=== PATIENT | male | born 1980 | race Caucasian/White ===

== ENCOUNTER 2017-01-23 17:06 | Emergency (ER) | payer OTHER ==
[~2017-01-23] VITALS: Ht 180.3 cm; Wt 99.0 kg
[~2017-01-23 17:06] MED LIST: PSYCH MEDS
[2017-01-23 17:39] VITALS: Ht 180.3 cm; Wt 99.0 kg
[2017-01-23] MEDS ORDERED: TRIMETHOPRIM/SULFAMETHOX (DS) TAB PO ONE (19:30)
[2017-01-23] MEDS ORDERED: CEPHALEXIN 500 MG CAP PO ONE (19:30)
[2017-01-23] MEDS ORDERED: LIDOCAINE 1% (MDV) 20 ML INJ SC ONE (19:30)
--- NOTE | 2017-01-23 19:47 | ERA ---
ER Documentation Chief Complaint Date/Time DATE: 01/23/17 TIME: 19:42 Chief Complaint Pt with Lower lip ulcer abd jaw pain X 1 week. HPI Patient is a 36-year-old male who presents with a one-week history of an abscess that started off as a pimple growing on the left lower lateral vermilion border. Patient describes dull pain to palpation along the left jaw and white drainage inside the mouth for the past 2-3 days. Patient denies any difficulty breathing, swelling in the mouth, fever, nausea, vomiting, diarrhea, body shakes, new rashes, changes in color of the skin. Has been taken Tylenol with minimal relief. Patient has never had an abscess before. ROS All systems reviewed and are negative except as per history of present illness. Medications Home Meds Active Scripts Ibuprofen* (Ibuprofen*) 600 Mg Tablet, 600 MG PO Q8 for 10 Days, TAB Prov:RAMON BRUNO PA-C 01/23/17 Reported Medications [Psych Meds] No Conflict Check 10/25/11 Allergies Allergies: Coded Allergies: No Known Allergy (Unverified , 11/29/11) PMhx/Soc History of Surgery: Yes (facial sx) Hx Psychiatric Problems: Yes (BIPOLAR PSYCH HISTORY) Hx Alcohol Use: Yes (DRINKING TONIGHT) Hx Substance Use: No Hx Tobacco Use: No Smoking Status: Current every day smoker Physical Exam Vitals Vital Signs Date Time Temp Pulse Resp B/P Pulse Ox O2 Delivery O2 Flow Rate FiO2 01/23/17 17:39 97.1 113 20 122/93 96 Physical Exam Const: [] Head: Atraumatic Eyes: Normal Conjunctiva ENT: Normal External Ears, Nose and Mouth. Neck: Full range of motion..~ No meningismus. Resp: Clear to auscultation bilaterally Cardio: Regular rate and rhythm, no murmurs Abd: Soft, non tender, non distended. Normal bowel sounds Skin: No petechiae or rashes Back: No midline or flank tenderness Ext: No cyanosis, or edema Neur: Awake and alert Psych: Normal Mood and Affect Results 24 hrs Current Medications Medications (Trade) Dose Ordered Sig/Venita Route PRN Reason Start Time Stop Time Status Last Admin Dose Admin Cephalexin (Keflex) 500 mg ONCE ONCE PO 01/23/17 19:30 01/23/17 19:31 DC 01/23/17 19:21 Trimethoprim/ Sulfamethoxazole (Bactrim (Ds)) 1 tab ONCE ONCE PO 01/23/17 19:30 01/23/17 19:31 DC 01/23/17 19:21 Lidocaine (Xylocaine 1% (Mdv) 20 ml) 20 ml ONCE ONCE SC 01/23/17 19:30 01/23/17 19:31 DC Procedures/MDM Patient presents with a abscess on the lower left lateral vermilion border. Patient looks infected and seems to require drainage. Procedure: Patient was cleaned, draped, injected with 3 mm of lidocaine without epinephrine. I made a 1 cm incision parallel to the vermilion border. The abscess was then massaged out of the opening. Patient was then packed with about 4 cm of packing. We will discharge the patient with antibiotics including Bactrim and Keflex with return precautions as well as a follow-up in 2 days to get the packing checked\removed. Departure Condition: Stable Additional Instructions: Return to emergency department 1 week to have the packing removed. Also, return to emergency department immediately if signs of infection, symptoms worsen, or difficulty breathing occurs. RAMON BRUNO PA-C Jan 23, 2017 19:47
[2017-01-23] MEDS ORDERED: IBUP-1542 PO (19:48)
[2017-01-23] MEDS ORDERED: CEPH-443 PO (20:41)
[2017-01-23] MEDS ORDERED: BACTDS PO (20:41)
== END 2017-01-23 20:45 | disposition home or self-care (01) ==
LOC: FTE 17:06
DX: K13.0 Diseases of lips (principal); F17.210 Nicotine dependence, cigarettes, uncomplicated
CPT/HCPCS: 10061; Z7502; Z7610

== ENCOUNTER 2017-01-24 22:09 | Emergency (ER) | payer OTHER ==
[~2017-01-24] VITALS: Wt 86.4 kg
[~2017-01-24 22:09] MED LIST changes: +BACTDS PO; +CEPH-443 PO; +IBUP-1542 PO
--- NOTE | 2017-01-25 00:34 | ERD ---
ER Documentation Chief Complaint Date/Time DATE: 01/25/17 TIME: 00:32 Chief Complaint i and d packing coming out from l. bottom lip HPI This a 36-year-old male who presents the emergency department today for a wound check of an abscess that he had drained a couple of days ago. Patient was concerned because some of the packing was starting to fall out. States he is taking his antibiotics. Denies any fevers or chills. ROS All systems reviewed and are negative except as per history of present illness. Medications Home Meds Active Scripts Cephalexin* (Keflex*) 500 Mg Capsule, 500 MG PO QID for 5 Days, CAP Prov:RAMON BRUNO PA-C 01/23/17 Sulfamethoxazole-Trimethoprim* (Bactrim* DS) 800-160 Mg Tab, 1 TAB PO BID for 5 Days, TAB Prov:RAMON BRUNO PA-C 01/23/17 Ibuprofen* (Ibuprofen*) 600 Mg Tablet, 600 MG PO Q8 for 10 Days, TAB Prov:RAMON BRUNO PA-C 01/23/17 Reported Medications [Psych Meds] No Conflict Check 10/25/11 Allergies Allergies: Coded Allergies: No Known Allergy (Unverified , 11/29/11) PMhx/Soc Medical and Surgical Hx: pt denies Medical Hx, pt denies Surgical Hx History of Surgery: Yes (facial sx) Anesthesia Reaction: No Hx Neurological Disorder: No Hx Respiratory Disorders: No Hx Cardiac Disorders: No Hx Psychiatric Problems: Yes (BIPOLAR PSYCH HISTORY) Hx Miscellaneous Medical Probl: No Hx Alcohol Use: Yes Hx Substance Use: Yes Hx Tobacco Use: Yes Smoking Status: Current every day smoker Physical Exam Vitals Vital Signs Date Time Temp Pulse Resp B/P Pulse Ox O2 Delivery O2 Flow Rate FiO2 01/24/17 22:13 98.0 102 20 137/78 95 Physical Exam Const: No acute distress Head: Atraumatic Eyes: Normal Conjunctiva ENT: Normal External Ears, Nose mouth with lower lip evidence of healing abscess. Wound is draining. Localized erythema. No warmth. Neck: Full range of motion..~ No meningismus. Resp: Clear to auscultation bilaterally Cardio: Regular rate and rhythm, no murmurs Skin: No petechiae or rashes Neur: Awake and alert Psych: Normal Mood and Affect Procedures/MDM This a 36-year-old male who presents to the emergency department today for a wound check of an abscess that had drained a couple of days ago. Patient was concerned because some of the packing was starting to fall out. Patient states the packing is not supposed to come out till tomorrow. I have reassured the patient that it has been approximately 48 hours and that I would remove the remaining of the packing. Patient is afebrile and otherwise well-appearing. Wound is currently continuing to drain. There is localized erythema however there is no warmth. Low suspicion for deep space infection, sepsis. Patient was instructed to continue taking his antibiotics as prescribed. Patient does not have good follow-up and I did instruct the patient to return in 48 hours for another wound check. Patient understood At this time the patient is stable for discharge and outpatient management. Patient should follow up with their PCP in the next 1-2 days. They may return to the emergency department sooner for any persistent or worsening of symptoms. Patient understood and agreed with the plan. Departure Diagnosis: Primary Impression: Encounter for wound re-check Condition: Fair Patient Instructions: Wound Care Referrals: [facility] YOU HAVE RECEIVED A MEDICAL SCREENING EXAM AND THE RESULTS INDICATE THAT YOU DO NOT HAVE A CONDITION THAT REQUIRES URGENT TREATMENT IN THE EMERGENCY DEPARTMENT. FURTHER EVALUATION AND TREATMENT OF YOUR CONDITION CAN WAIT UNTIL YOU ARE SEEN IN YOUR DOCTORS OFFICE WITHIN THE NEXT 1-2 DAYS. IT IS YOUR RESPONSIBILITY TO MAKE AN APPOINTMENT FOR FOLOW-UP CARE. IF YOU HAVE A PRIMARY DOCTOR --you should call your primary doctor and schedule an appointment IF YOU DO NOT HAVE A PRIMARY DOCTOR YOU CAN CALL OUR PHYSICIAN REFERRAL HOTLINE AT IF YOU CAN NOT AFFORD TO SEE A PHYSICIAN YOU CAN CHOSE FROM THE FOLLOWING [facility] [address] [facility] [address] [facility] [facility] [place] [address] [facility] [address] [facility] [address] [facility]. [facility]. [address] Additional Instructions: Call your primary care doctor TOMORROW for an appointment during the next 1-2 days.See the doctor sooner or return here if your condition worsens before your appointment time. Follow-up in 48 hours for another wound check Keep wound clean and dry Continue taking antibiotics as prescribed and Motrin or Tylenol for pain BONI ZURITA PA-C Jan 25, 2017 00:34
[2017-01-25 00:39] VITALS: BP 130/78; PULSE 78; RESP 20; TEMP 98
== END 2017-01-25 00:41 | disposition home or self-care (01) ==
LOC: FTE 22:09
DX: Z48.01 Encounter for change or removal of surgical wound dressing (principal); F17.210 Nicotine dependence, cigarettes, uncomplicated
CPT/HCPCS: 99281

== ENCOUNTER 2017-02-22 16:37 | Emergency (ER) | payer OTHER ==
[~2017-02-22] VITALS: Ht 180.3 cm; Wt 100.0 kg
[2017-02-22 16:58] VITALS: Ht 180.3 cm; Wt 100.0 kg
[2017-02-22] MEDS ORDERED: SULF1TAB31 PO (18:59)
[2017-02-22] MEDS ORDERED: IBUP-1542 PO (18:59)
[2017-02-22] MEDS ORDERED: CEPH-443 PO (18:59)
--- NOTE | 2017-02-22 19:08 | ERD ---
ER Documentation Chief Complaint Date/Time DATE: 02/22/17 TIME: 19:02 Chief Complaint PT HAS ABSCESS ON RIGHT JAW X 2 DAYS HPI 36-year-old male complaining of abscess on the right side of his face 2 days. Patient stated that he "popped" it this morning, large amount of pus came out. He still has the pain. Denies fever or chills. Denies history of abscess in the past. Denies sore throat or shortness of breath. Denies tooth pain. ROS All systems reviewed and are negative except as per history of present illness. Medications Home Meds Active Scripts Cephalexin* (Keflex*) 500 Mg Capsule, 500 MG PO QID for 7 Days, CAP Prov:VICKY WEAVER. BLANKBOOK FORWARDER 02/22/17 Sulfamethoxazole/Trimethoprim (Bactrim Ds Tablet) 1 Each Tablet, 1 EACH PO Q12 for 7 Days, TAB Prov:VICKY WEAVER. BLANKBOOK FORWARDER 02/22/17 Ibuprofen* (Motrin*) 600 Mg Tab, 600 MG PO Q6H Y for PAIN AND OR ELEVATED TEMP, #30 TAB Prov:VICKY WEAVER. BLANKBOOK FORWARDER 02/22/17 Cephalexin* (Keflex*) 500 Mg Capsule, 500 MG PO QID for 5 Days, CAP Prov:RAMON BRUNO PA-C 01/23/17 Sulfamethoxazole-Trimethoprim* (Bactrim* DS) 800-160 Mg Tab, 1 TAB PO BID for 5 Days, TAB Prov:RAMON BRUNO PA-C 01/23/17 Ibuprofen* (Ibuprofen*) 600 Mg Tablet, 600 MG PO Q8 for 10 Days, TAB Prov:RAMON BRUNO PA-C 01/23/17 Reported Medications [Psych Meds] No Conflict Check 10/25/11 Allergies Allergies: Coded Allergies: No Known Allergy (Unverified , 11/29/11) PMhx/Soc History of Surgery: Yes (facial sx) Anesthesia Reaction: No Hx Neurological Disorder: No Hx Respiratory Disorders: No Hx Cardiac Disorders: No Hx Psychiatric Problems: Yes (BIPOLAR PSYCH HISTORY) Hx Miscellaneous Medical Probl: No Hx Alcohol Use: Yes Hx Substance Use: Yes Hx Tobacco Use: Yes Physical Exam Vitals Vital Signs Date Time Temp Pulse Resp B/P Pulse Ox O2 Delivery O2 Flow Rate FiO2 02/22/17 16:58 98.6 88 17 141/90 97 Physical Exam General impression: Well-developed, well-nourished. Alert, oriented, in no acute distress Head: Normocephalic, atraumatic. Eyes: PERRL, EOM normal. Sclerae are normal. Conjunctiva not injected. ENT: Nasal mucosa, oral mucosa and oropharynx are normal. Neck: Supple, nontender. No lymphadenopathy. No nuchal rigidity. Respiration: Normal respiratory effort. Lungs clear to auscultate bilaterally. No wheezes, rales or rhonchi. Cardiovascular: Regular rate and rhythm. No murmurs or extra heart sounds. Neuro: Mental status normal, speech normal. 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 Skin: Normal turgor. A 2 cm x 3 cm area of erythema and induration noted on the right side of the face at the angle of the jaw. No fluctuance. Tender. Psych: Normal mood and affect. Procedures/MDM Well-appearing 36-year-old male presented to ED with cellulitis abscess of the right side of the face. He had drained the abscess at home. There is no fluctuance at this time. I do not think further incision and drainage is needed. No sign of systemic infection. Patient will be given prescription Bactrim DS and Keflex. Patient advised to return to eating 2 days for follow- up wound check. Incision and drainage may be necessary at that time. Patient appears well, stable for discharge and outpatient management. Medical decision making shared with patient and family. Education provided to patient and family. Patient and family expressed understanding of the plan. Medications on discharge: Ibuprofen, Keflex, Bactrim DS. Follow-up: Primary care provider in 2-3 days or return to ED if worse. Departure Diagnosis: Primary Impression: Cellulitis and abscess of face Condition: Good Patient Instructions: Cellulitis, Facial Referrals: [facility] YOU HAVE RECEIVED A MEDICAL SCREENING EXAM AND THE RESULTS INDICATE THAT YOU DO NOT HAVE A CONDITION THAT REQUIRES URGENT TREATMENT IN THE EMERGENCY DEPARTMENT. FURTHER EVALUATION AND TREATMENT OF YOUR CONDITION CAN WAIT UNTIL YOU ARE SEEN IN YOUR DOCTORS OFFICE WITHIN THE NEXT 1-2 DAYS. IT IS YOUR RESPONSIBILITY TO MAKE AN APPOINTMENT FOR FOLOW-UP CARE. IF YOU HAVE A PRIMARY DOCTOR --you should call your primary doctor and schedule an appointment IF YOU DO NOT HAVE A PRIMARY DOCTOR YOU CAN CALL OUR PHYSICIAN REFERRAL HOTLINE AT IF YOU CAN NOT AFFORD TO SEE A PHYSICIAN YOU CAN CHOSE FROM THE FOLLOWING [facility] [address] [facility] [address] [facility] [address] [facility] [address] [facility]. [facility] [phone] [address] [facility]. [facility] [address] Additional Instructions: Return to this facility in 2 DAYS for a follow-up exam.Return sooner if your condition worsens. VICKY WEAVER NP Feb 22, 2017 19:08
[2017-02-22 19:22] VITALS: BP 138/84; PULSE 73; RESP 20; TEMP 98.2
== END 2017-02-22 19:24 | disposition home or self-care (01) ==
LOC: FTE 16:37
DX: L03.211 Cellulitis of face (principal)
CPT/HCPCS: 99284

== ENCOUNTER 2017-03-27 10:35 | Emergency (ER) | payer OTHER ==
[~2017-03-27] VITALS: Wt 105.0 kg
[~2017-03-27 10:35] MED LIST changes: +SULF1TAB31 PO
[2017-03-27] MEDS ORDERED: LIDOCAINE 1% (MDV) 20 ML INJ SC ONE (13:00)
[2017-03-27] MEDS ORDERED: CLIN-73 PO (14:01)
--- NOTE | 2017-03-27 14:10 | ERA ---
ER Documentation Chief Complaint Date/Time DATE: 03/27/17 TIME: 14:03 Chief Complaint LFT EYE PAIN HPI This is a 36-year-old male presenting for an abscess. Abscess is under the left eye over the left zygomatic arch. Patient has had 2 other abscesses in the past 2 months. Patient describes this abscess as dull pain with palpation. Patient states that the pain is 8-9 out of 10 when palpating. Patient has been taking Keflex without relief as well as ibuprofen for pain management with minimal relief. Patient denies loss of vision, blurry vision, dysphasia, difficulty breathing or drug use. ROS All systems reviewed and are negative except as per history of present illness. Medications Home Meds Active Scripts Clindamycin Hcl* (Clindamycin Hcl*) 300 Mg Capsule, 300 MG PO TID for 10 Days, CAP Prov:RAMON BRUNO PA-C 03/27/17 Cephalexin* (Keflex*) 500 Mg Capsule, 500 MG PO QID for 7 Days, CAP Prov:VICKY WEAVER. STATISTICAL PROGRAMMER 02/22/17 Sulfamethoxazole/Trimethoprim* (Bactrim Ds* Tablet) 1 Each Tablet, 1 EACH PO Q12 for 7 Days, TAB Prov:VICKY WEAVER. STATISTICAL PROGRAMMER 02/22/17 Ibuprofen* (Motrin*) 600 Mg Tab, 600 MG PO Q6H Y for PAIN AND OR ELEVATED TEMP, #30 TAB Prov:VICKY WEAVER. STATISTICAL PROGRAMMER 02/22/17 Cephalexin* (Keflex*) 500 Mg Capsule, 500 MG PO QID for 5 Days, CAP Prov:RAMON BRUNO PA-C 01/23/17 Sulfamethoxazole-Trimethoprim* (Bactrim* DS) 800-160 Mg Tab, 1 TAB PO BID for 5 Days, TAB Prov:RAMON BRUNO PA-C 01/23/17 Ibuprofen* (Ibuprofen*) 600 Mg Tablet, 600 MG PO Q8 for 10 Days, TAB Prov:RAMON BRUNO PA-C 01/23/17 Reported Medications [Psych Meds] No Conflict Check 10/25/11 Allergies Allergies: Coded Allergies: No Known Allergy (Unverified , 11/29/11) PMhx/Soc History of Surgery: Yes (facial sx) Anesthesia Reaction: No Hx Neurological Disorder: No Hx Respiratory Disorders: No Hx Cardiac Disorders: No Hx Psychiatric Problems: Yes (BIPOLAR PSYCH HISTORY) Hx Miscellaneous Medical Probl: No Hx Alcohol Use: No Hx Substance Use: No Hx Tobacco Use: No Physical Exam Vitals Vital Signs Date Time Temp Pulse Resp B/P Pulse Ox O2 Delivery O2 Flow Rate FiO2 03/27/17 10:40 98.0 115 18 156/89 99 Physical Exam Const: There are 6-year-old male with tattoos. Head: Atraumatic Eyes: Normal Conjunctiva ENT: Normal External Ears, Nose and Mouth. Neck: Full range of motion..~ No meningismus. Resp: Clear to auscultation bilaterally Cardio: Regular rate and rhythm, no murmurs Abd: Soft, non tender, non distended. Normal bowel sounds Skin: No petechiae or rashes Back: No midline or flank tenderness Ext: No cyanosis, or edema Neur: Awake and alert Psych: Normal Mood and Affect Results 24 hrs Current Medications Medications (Trade) Dose Ordered Sig/Venita Route PRN Reason Start Time Stop Time Status Last Admin Dose Admin Lidocaine (Xylocaine 1% (Mdv) 20 ml) 20 ml ONCE ONCE SC 03/27/17 13:00 03/27/17 13:01 DC Procedures/MDM Patient was seen for an abscess spanning 3 cm over his zygomatic arch on the left side. Patient's abscess was incised and drained. Procedure: There was a 0.2 cm horizontal incision made over the left zygomatic arch perpendicular to the lateral angle of the left eye. The abscess was then drained applying pressure. There was minimal amount of drainage. Abscess was then probed and pressure was then applied again with a little bit more drainage. After drainage has ceased and only blood was coming out stopped the procedure. There is no packing inserted as this is a small abscess. Let the incision heal by secondary intention. There were no complications during the procedure and the patient is neurovascularly intact before and after procedure. Have spoke with the patient's condition is verbally responded acknowledging his current status and treatment plan. Patient's condition is currently appropriate for discharge and vital signs are stable. Patient will be discharged at this time clindamycin with recommendation to continue the Keflex he is currently on. Side effects of drugs have been reviewed with patient. Departure Diagnosis: Primary Impression: Abscess Condition: Stable Patient Instructions: Abscess, Incision And Drainage Additional Instructions: Continue taking Keflex. Follow up with your PCP within the next 1-3 days for a more thorough evaluation and a possible referral to a specialist. Return the the emergency department immediately if symptoms worsen or change. If you have any questions regarding medications, ask your pharmacist or us before you leave. If any adverse reactions occur while taking your medications, discontinue the treatment and return to the emergency department immediately. Take your medications as directed, and complete the entire course of treatment. RAMON BRUNO PA-C March 27, 2017 14:09
[2017-03-27 14:30] VITALS: BP 136/70; PULSE 64; RESP 18; TEMP 97.9
== END 2017-03-27 14:30 | disposition home or self-care (01) ==
LOC: FTE 10:35
DX: L02.01 Cutaneous abscess of face (principal)
CPT/HCPCS: 10060; Z7502

== ENCOUNTER 2017-11-20 10:05 | Emergency (ER) | END 2017-11-20 10:56 | disposition home or self-care (01) ==

== ENCOUNTER 2019-02-06 08:37 | Emergency (ER) | payer OTHER ==
[~2019-02-06] VITALS: Ht 180.3 cm; Wt 98.0 kg
[~2019-02-06 08:37] MED LIST changes: +CLIN300C10 PO
[2019-02-06 08:41] VITALS: BP 147/91; PULSE 91; RESP 19; Ht 180.3 cm; Wt 98.0 kg
--- NOTE | 2019-02-06 09:10 | ERD ---
ER Documentation Chief Complaint Chief Complaint SKIN RASHES / FOR PSYCH EVAL INORDER TO DONATE BLOOD - HX OF BI POLAR/ HPI 38-year-old male presents to the emergency department asking for a medical clearance to give blood. he has no significant medical complaints at this time. Referral from the blood donation center is requesting a psychiatric evaluation. The patient states he has a history of untreated bipolar disease since 2005. He takes no medications. He denies hospitalizations since 2006. He denies feeling suicidal, homicidal. ROS All systems reviewed and are negative except as per history of present illness. Medications Home Meds Active Scripts Ibuprofen* (Motrin*) 600 Mg Tab, 600 MG PO Q6, #30 TAB Prov:TRUDY KLEIN PA-C 11/20/17 Clindamycin Hcl* (Clindamycin Hcl*) 300 Mg Capsule, 300 MG PO TID for 10 Days, CAP Prov:RAMON BRUNO PA-C 03/27/17 Cephalexin* (Keflex*) 500 Mg Capsule, 500 MG PO QID for 7 Days, CAP Prov:VICKY WEAVER METER CALIBRATOR 02/22/17 Sulfamethoxazole/Trimethoprim* (Bactrim Ds* Tablet) 1 Each Tablet, 1 EACH PO Q12 for 7 Days, TAB Prov:VICKY WEAVER. METER CALIBRATOR 02/22/17 Ibuprofen* (Motrin*) 600 Mg Tab, 600 MG PO Q6H PRN for PAIN AND OR ELEVATED TEMP, #30 TAB Prov:VICKY WEAVER. BERNABE 02/22/17 Cephalexin* (Keflex*) 500 Mg Capsule, 500 MG PO QID for 5 Days, CAP Prov:RAMON BRUNO PA-C 01/23/17 Sulfamethoxazole-Trimethoprim* (Bactrim* DS) 800-160 Mg Tab, 1 TAB PO BID for 5 Days, TAB Prov:RAMON BRUNO PA-C 01/23/17 Ibuprofen* (Ibuprofen*) 600 Mg Tablet, 600 MG PO Q8 for 10 Days, TAB Prov:RAMON BRUNO PA-C 01/23/17 Reported Medications [Psych Meds] No Conflict Check 10/25/11 Allergies Allergies: Coded Allergies: No Known Allergy (Unverified , 11/29/11) PMhx/Soc History of Surgery: Yes (facial sx) Anesthesia Reaction: No Hx Neurological Disorder: No Hx Respiratory Disorders: No Hx Cardiac Disorders: No Hx Psychiatric Problems: Yes (BIPOLAR PSYCH HISTORY) Hx Miscellaneous Medical Probl: No Hx Alcohol Use: No Hx Substance Use: No Hx Tobacco Use: No Physical Exam Vitals Vital Signs Date Temp Pulse Resp B/P (MAP) Pulse Ox O2 O2 Flow FiO2 Time Delivery Rate 02/06/19 97.9 91 19 147/91 98 08:41 (109) Physical Exam GENERAL: The patient is well developed and appropriate for usual state of health in no apparent distress HEENT: Pupils equal, round, and reactive to light. EOMI. There is no scleral icterus. NECK: C-spine is soft and supple, there is no meningismus. There is no cervical lymphadenopathy. LUNGS: Clear to auscultation bilaterally. There are no rales, wheezes or rhonchi. HEART: Regular rate and rhythm, no murmurs, clicks, rubs or gallops. ABDOMEN: Soft, non-tender, non-distended. There are bowel sounds in all four quadrants. No rebound or guarding. EXTREMITIES: There is no peripheral cyanosis or edema. No focal swelling or erythema. NEURO: The patient moves all four extremities with 5/5 strength. Cranial nerves II - XII are intact. Normal gait. Alert and oriented SKIN: There is no apparent rash or petechiae. HEME/LYMPHATIC: There is no evidence of excessive bruising or lymphedema. PSYCHIATRIC: The patient does not appear anxious or depressed. Patient is awake alert oriented and able to expose a care plan for himself. There is no agitation or delirium noted. Procedures/MDM Patient was taken to a room, seen and examined Medical decision m[age]-year-old male presents for routine medical clearance. At this time, patient has no clear evidence of decompensated psychiatric disease and no symptoms consistent with decompensated emergent medical condition. Patient has been referred to outpatient psychiatric care if he so desires. He is otherwise clinically well and appropriate for outpatient care. Departure Diagnosis: Primary Impression: Bipolar disorder Condition: Stable Patient Instructions: Bipolar Disorder Additional Instructions: Please see the psychiatrists at the [facility]. Return for any problems or concerns CHEO ELISE Feb 06, 2019 09:10
== END 2019-02-06 10:38 | disposition home or self-care (01) ==
LOC: E/R 08:37
DX: F31.9 Bipolar disorder, unspecified (principal)
CPT/HCPCS: 99282